=== PATIENT | male | born 1980 | race Caucasian/White ===

== ENCOUNTER → 2016-12-22 03:42 | Emergency (ER) | payer BC ==
[~2016-12-22 03:42] MED LIST: Phenytoin CAP(*) 100 MG CAP.ER PO ONE
[2016-12-22 03:47] VITALS: BP 140/94
[2016-12-22 05:38] LABS: Hematocrit 46 % (42-52); Hemoglobin 15.8 g/dl (14.0-18.0); Mean Corpuscular HGB Conc 35 g/dl (31-36); Mean Corpuscular Hemoglobin 30 pg (27-31); Mean Corpuscular Volume 87 fL (80-94); Mean Platelet Volume 9 um3 (7.4-10.4); Red Blood Count 5.27 10^6/ul (4.0-5.4); Red Cell Distribution Width 13 % (10.5-15); White Blood Count 4.7 10^3/ul (3.5-10.8)
[2016-12-22 05:49] LABS: Urine Bacteria Absent (Absent); Urine Bilirubin Negative (Negative); Urine Glucose Negative (Negative); Urine Nitrite Negative (Negative)
[2016-12-22 06:05] LABS: ALT 38 U/L (7-52); AST 22 U/L (13-39); Albumin 4.5 g/dL (3.2-5.2); Alkaline Phosphatase 108 U/L (34-104); Anion Gap 11 mmol/L (2-11); Blood Urea Nitrogen 9 mg/dL (6-24); CO2 Carbon Dioxide 24 mmol/L (22-32); Calcium 9.2 mg/dL (8.6-10.3); Chloride 101 mmol/L (101-111); EGFR African American 153.3 (>60); EGFR Non-African American 119.2 (>60); Globulin 2.5 g/dL (2-4); Glucose 71 mg/dL (70-100); Potassium 3.6 mmol/L (3.5-5.0); Sodium 136 mmol/L (133-145)
[2016-12-22 06:14] LABS: Benzodiazepine Urine Screen None Detected (None Detect)
[2016-12-22 06:47] LABS: Acetaminophen < 15 mcg/mL; Alcohol 49 mg/dL (<10); Salicylate < 2.50 mg/dL (<30)
[2016-12-22 07:03] LABS: TSH (Thyroid Stimulating Horm) 2.37 mcIU/mL (0.34-5.60)
--- NOTE | 2017-01-01 15:02 | ED ---
Gregoria Kelly Jason, scribed for Luis De León MD on 12/22/16 at 0437 . Psychiatric Complaint - HPI Summary HPI Summary: This patient is a 36 year old M presenting to [facility] with a chief complaint of SI since t. States reports that he is depressed as he going through separation and threatened to take his own life, stating that he recently found out his is having an affair. The patient rates the pain 0/10 in severity. Symptoms aggravated by social stress. Symptoms alleviated by nothing. Patient reports no SI plan. Patient denies hx of depression of family hx of depression. Additionally, he regularly takes phenytek before sleep for seizures. - History Of Current Complaint Chief Complaint: EDMentalHealth Hx Obtained From: Patient Onset/Duration: Gradual Onset Timing: Minutes Character: Depressed Aggravating Factor(s): Recent Stress - Separation from Alleviating Factor(s): Nothing Has Suicidal: Reports: Thoughts. Denies: With A Plan - Allergies/Home Medications Allergies/Adverse Reactions: Allergies Allergy/AdvReac Type Severity Reaction Status Date / Time No Known Allergies Allergy Verified 09/28/14 11:30 PMH/Surg Hx/FS Hx/Imm Hx Previously Healthy: No Opthamlomology History: Denies: Hx Legally Blind EENT History: Denies: Hx Deafness Neurological History: Reports: Hx Seizures Psychiatric History: Denies: Hx Depression Infectious Disease History: No Infectious Disease History: Denies: Traveled Outside the [place] in Last 30 Days - Family History Known Family History: Positive: Cardiac Disease, Hypertension, Other - Negative Hx Depression - Social History Occupation: Employed Full-time Lives: With Family Alcohol Use: Rare Hx Substance Use: No Substance Use Type: Reports: None Smoking Status (MU): Former Smoker Review of Systems Negative: Fever Positive: Depressed, Other - SI All Other Systems Reviewed And Are Negative: Yes Physical Exam - Summary Physical Exam Summary: Appearance: Well-appearing, Well-nourished Skin: Warm, Dry, No rash Eyes: Normal, PERRL, EOMI, sclera anicteric ENT: Normal Neck: Supple, nontender Respiratory: Clear to auscultation Cardiovascular: S1, S2, no murmur, no rub, no gallop Abdomen: Soft, nontender, no organomegaly Bowel sounds: Present Musculoskeletal: Normal, Strength/ROM Intact, no edema, pulses symmetrical Neurological: Normal, A&Ox3, cranial nerves 2-12 wnl, follows commands, gait not tested, sensation intact to pin and light touch Psychiatric: affect depressed, behavior appropriate, dressed appropriately, judgment intact, optimistic about the future, denies SI at the moment. Triage Information Reviewed: Yes Vital Signs On Initial Exam: Initial Vitals Temp Pulse Resp BP Pulse Ox 97 F 85 18 140/94 98 12/22/16 03:44 12/22/16 03:44 12/22/16 03:44 12/22/16 03:44 12/22/16 03:44 Vital Signs Reviewed: Yes Diagnostics - Vital Signs Vital Signs Temp Pulse Resp BP Pulse Ox 12/22/16 03:44 97 F 85 18 140/94 98 - Laboratory Lab Results: Lab Results 12/22/16 12/22/16 12/22/16 Range/Units 05:05 05:05 05:10 WBC (3.5-10.8) 10^3/ul RBC (4.0-5.4) 10^6/ul Hgb (14.0-18.0) g/dl Hct (42-52) % MCV (80-94) fL MCH (27-31) pg MCHC (31-36) g/dl RDW (10.5-15) % Plt Count (150-450) 10^3/ul MPV (7.4-10.4) um3 Neut % (Auto) (38-83) % Lymph % (Auto) (25-47) % [place] % (Auto) (1-9) % Eos % (Auto) (0-6) % Baso % (Auto) (0-2) % Absolute Neuts (auto) (1.5-7.7) 10^3/ul Absolute Lymphs (auto) (1.0-4.8) 10^3/ul Absolute Monos (auto) (0-0.8) 10^3/ul Absolute Eos (auto) (0-0.6) 10^3/ul Absolute Basos (auto) (0-0.2) 10^3/ul Absolute Nucleated RBC 10^3/ul Nucleated RBC % Sodium 136 (133-145) mmol/L Potassium 3.6 (3.5-5.0) mmol/L Chloride 101 (101-111) mmol/L Carbon Dioxide 24 (22-32) mmol/L Anion Gap 11 (2-11) mmol/L BUN 9 (6-24) mg/dL Creatinine 0.75 (0.67-1.17) mg/dL Est GFR ( Amer) 153.3 (>60) Est GFR (Non-Af Amer) 119.2 (>60) BUN/Creatinine Ratio 12.0 (8-20) Glucose 71 (70-100) mg/dL Calcium 9.2 (8.6-10.3) mg/dL Total Bilirubin 0.40 (0.2-1.0) mg/dL AST 22 (13-39) U/L ALT 38 (7-52) U/L Alkaline Phosphatase 108 H (34-104) U/L Total Protein 7.0 (6.4-8.9) g/dL Albumin 4.5 (3.2-5.2) g/dL Globulin 2.5 (2-4) g/dL Albumin/Globulin Ratio 1.8 (1-3) TSH 2.37 (0.34-5.60) mcIU/mL Urine Color Yellow Urine Appearance Clear Urine pH 5.0 (5-9) Ur Specific [place] 1.009 L (1.010-1.030) Urine Protein Negative (Negative) Urine Ketones Negative (Negative) Urine Blood 1+ H (Negative) Urine Nitrate Negative (Negative) Urine Bilirubin Negative (Negative) Urine Urobilinogen Negative (Negative) Ur Leukocyte Esterase Negative (Negative) Urine WBC (Auto) Trace(0-5/hpf) (Absent) Urine RBC (Auto) Trace(0-2/hpf) (Absent) Urine Bacteria Absent (Absent) Urine Glucose Negative (Negative) Salicylates < 2.50 (<30) mg/dL Urine Opiates Screen None detected (None Detect) Acetaminophen < 15 mcg/mL Ur Barbiturates Screen None detected (None Detect) Ur Phencyclidine Scrn None detected (None Detect) Ur Amphetamines Screen None detected (None Detect) U Benzodiazepines Scrn None detected (None Detect) Urine Cocaine Screen None detected (None Detect) U Cannabinoids Screen None detected (None Detect) Serum Alcohol 49 H (<10) mg/dL 12/22/16 Range/Units 05:10 WBC 4.7 (3.5-10.8) 10^3/ul RBC 5.27 (4.0-5.4) 10^6/ul Hgb 15.8 (14.0-18.0) g/dl Hct 46 (42-52) % MCV 87 (80-94) fL MCH 30 (27-31) pg MCHC 35 (31-36) g/dl RDW 13 (10.5-15) % Plt Count 185 (150-450) 10^3/ul MPV 9 (7.4-10.4) um3 Neut % (Auto) 63.0 (38-83) % Lymph % (Auto) 26.5 (25-47) % [place] % (Auto) 8.2 (1-9) % Eos % (Auto) 1.0 (0-6) % Baso % (Auto) 1.3 (0-2) % Absolute Neuts (auto) 3.0 (1.5-7.7) 10^3/ul Absolute Lymphs (auto) 1.2 (1.0-4.8) 10^3/ul Absolute Monos (auto) 0.4 (0-0.8) 10^3/ul Absolute Eos (auto) 0 (0-0.6) 10^3/ul Absolute Basos (auto) 0.1 (0-0.2) 10^3/ul Absolute Nucleated RBC 0.02 10^3/ul Nucleated RBC % 0.5 Sodium (133-145) mmol/L Potassium (3.5-5.0) mmol/L Chloride (101-111) mmol/L Carbon Dioxide (22-32) mmol/L Anion Gap (2-11) mmol/L BUN (6-24) mg/dL Creatinine (0.67-1.17) mg/dL Est GFR ( Amer) (>60) Est GFR (Non-Af Amer) (>60) BUN/Creatinine Ratio (8-20) Glucose (70-100) mg/dL Calcium (8.6-10.3) mg/dL Total Bilirubin (0.2-1.0) mg/dL AST (13-39) U/L ALT (7-52) U/L Alkaline Phosphatase (34-104) U/L Total Protein (6.4-8.9) g/dL Albumin (3.2-5.2) g/dL Globulin (2-4) g/dL Albumin/Globulin Ratio (1-3) TSH (0.34-5.60) mcIU/mL Urine Color Urine Appearance Urine pH (5-9) Ur Specific [place] (1.010-1.030) Urine Protein (Negative) Urine Ketones (Negative) Urine Blood (Negative) Urine Nitrate (Negative) Urine Bilirubin (Negative) Urine Urobilinogen (Negative) Ur Leukocyte Esterase (Negative) Urine WBC (Auto) (Absent) Urine RBC (Auto) (Absent) Urine Bacteria (Absent) Urine Glucose (Negative) Salicylates (<30) mg/dL Urine Opiates Screen (None Detect) Acetaminophen mcg/mL Ur Barbiturates Screen (None Detect) Ur Phencyclidine Scrn (None Detect) Ur Amphetamines Screen (None Detect) U Benzodiazepines Scrn (None Detect) Urine Cocaine Screen (None Detect) U Cannabinoids Screen (None Detect) Serum Alcohol (<10) mg/dL Result Diagrams: 12/22/16 05:10 12/22/16 05:10 Lab Statement: Any lab studies that have been ordered have been reviewed, and results considered in the medical decision making process. Course/Dx - Course Course Of Treatment: This patient is a 36 year old M presenting to [facility] with a chief complaint of SI since t. States reports that he is depressed as he going through separation and threatened to take his own life, stating that he recently found out his is having an affair. The patient rates the pain 0/ 10 in severity. Symptoms aggravated by social stress. Symptoms alleviated by nothing. Patient reports no SI plan. Patient denies hx of depression of family hx of depression. Additionally, he regularly takes phenytek before sleep for seizures. Assessment/Plan: 0700 cleared for MHE. Impression of SI and depression. - Differential Dx/Clinical Impression Differential Diagnosis/HQI/PQRI: Positive: Depression, Suicidal Ideation Provider Diagnosis: Depression Discharge - Discharge Plan Condition: Good Disposition: [facility]CHIATRIC FACILITY[facility] Patient Education Materials: Suicide Prevention for Adults (ED) Referrals: [facility] [Outside] Donald Meade MD [Primary Care Provider] - Additional Instructions: Per completion of a mental health evaluation, you are cleared for release and do not require inpatient psychiatric hospitalization at this time. Please go to nearest emergency room or call 911 if safety concerns arise or condition worsens. IMPORTANT PHONE NUMBERS: [facility] Behavioral Services Unit: [facility] Emergency Room Flex Unit: Suicide Prevention and Crisis Services: The Chat: Text (free and confidential online crisis service sponsored by [facility] Suicide Prevention, available Saturday-Saturday 6pm 9pm) National Suicide Prevention Lifeline: (987) 986-APCS (8601) National Crisis Text Line: Text HELLO to 427868 [facility]: [facility] Outreach for Older Adults: [facility] Mental Health Association: [facility]: [facility] Police: [facility] Sheriff: [place] [employer]: OUTPATIENT SERVICES You have been referred to [facility]. It is our recommendation that you call [facility] to secure an appointment on their next business day. Adults can schedule their first appointment by phone or in person during walk-in hours. Walk-in hours occur Saturday - Saturday until 2:30pm. If you require further assistance connecting to outpatient providers, please contact our Mental Health Unit at . No changes or adjustments were made to your medication regimen during this evaluation. Continue medications as prescribed by your outpatient providers. [facility] [address] [place], [place] [address] The documentation as recorded by the Gregoria patrick Jason accurately reflects the service I personally performed and the decisions made by me, Luis De Lenó MD.
== END | disposition home or self-care (01) ==
LOC: ED 03:42
DX: T14.91XA Suicide attempt, initial encounter (principal); F32.9 Major depressive disorder, single episode, unspecified; X83.8XXA Intentional self-harm by other specified means, initial encounter; Y93.9 Activity, unspecified; Y92.9 Unspecified place or not applicable
CPT/HCPCS: 36415; 80053; 80307; 80320; 80329; 81003; 81015; 84443; 85025; 99284; A9270-GY; G0480